=== PATIENT | male | born 1955 | race Caucasian/White ===

== ENCOUNTER 2020-07-10 13:50 | Observation (INO) | payer OTHER ==
[~2020-07-10] VITALS: Ht 177.8 cm; Wt 63.0 kg
[~2020-07-10 13:50] MED LIST: KEFLEX CAP 500500 MG PO
[2020-07-10 14:59] LABS: HEMOGLOBIN 15.6 gm/dl (14.0-17.5); RED BLOOD COUNT 5.05 M/UL (4.20-5.50); WHITE BLOOD COUNT 8.7 K/UL (4.5-11.0)
[2020-07-10 15:28] LABS: BUN/CREATININE RATIO 31 (0-10)
[2020-07-10] MEDS ORDERED: CLOPIDOGREL75 MG PO (17:06)
[2020-07-10] MEDS ORDERED: LISINOPRIL20 MG PO (17:06)
[2020-07-10] MEDS ORDERED: PRAVASTATIN SOD40 MG PO (17:06)
[2020-07-10] MEDS ORDERED: LANTUS SOL100 UNIT/1 SQ (17:07)
[2020-07-10] MEDS ORDERED: ASPIRIN325 MG PO (17:08)
[2020-07-10 20:57] LABS: BUN/CREATININE RATIO 30 (0-10)
[2020-07-11 03:41] LABS: HEMOGLOBIN 13.8 gm/dl (14.0-17.5); RED BLOOD COUNT 4.6 M/UL (4.20-5.50); WHITE BLOOD COUNT 8.4 K/UL (4.5-11.0)
[2020-07-11 03:55] LABS: BUN/CREATININE RATIO 33 (0-10)
[2020-07-11] MEDS ORDERED: LANTUS INS100 UTS/M1 SQ (09:08)
[2020-07-11] MEDS ORDERED: LISINOPRIL20 MG PO (09:08)
[2020-07-11] MEDS ORDERED: PRAVASTATIN SOD40 MG PO (09:08)
[2020-07-11] MEDS ORDERED: CLOPIDOGREL75 MG PO (09:08)
[2020-07-11] MEDS ORDERED: HUMALOG100 UNIT/1 SC (09:09)
== END 2020-07-11 14:58 | disposition home or self-care (01) ==
LOC: ER1 13:50 → CDU 16:37 → MED SURG 4 16:37
PROVIDERS: Emergency Medicine; Physician Assistant; ADMIT Internal Medicine
DX: E11.65 Type 2 diabetes mellitus with hyperglycemia (principal); E87.5 Hyperkalemia; I10 Essential (primary) hypertension; E78.5 Hyperlipidemia, unspecified; F17.210 Nicotine dependence, cigarettes, uncomplicated; Z20.822 Contact with and (suspected) exposure to COVID-19; Z98.1 Arthrodesis status; Z79.4 Long term (current) use of insulin; Z79.82 Long term (current) use of aspirin; Z79.2 Long term (current) use of antibiotics; Z86.73 Personal history of transient ischemic attack (TIA), and cerebral infarction without residual deficits; Z91.19 Patient's noncompliance with other medical treatment and regimen
CPT/HCPCS: 36415; 71045; 80048; 80053; 81001; 82009; 82800; 82962; 83036; 83605; 83735; 83930; 84100; 85025; 87040; 87070; 87077; 87086; 87186; 87205; 93005; 96374; 99285; G0378; J7030; U0002

== ENCOUNTER → 2020-07-29 | Outpatient (CLI) | payer OTHER ==
[~2020-07-29] MED LIST changes: +ASPIRIN325 MG PO; +CLOPIDOGREL75 MG PO; +HUMALOG100 UNIT/1 SC; +LANTUS INS100 UTS/M1 SQ; +LANTUS SOL100 UNIT/1 SQ; +LISINOPRIL20 MG PO; +PRAVASTATIN SOD40 MG PO
[2020-07-29 13:11] LABS: HEMOGLOBIN 12.8 gm/dl (14.0-17.5); RED BLOOD COUNT 4.36 M/UL (4.20-5.50); WHITE BLOOD COUNT 7.2 K/UL (4.5-11.0)
[2020-07-29 13:30] LABS: BUN/CREATININE RATIO 30 (0-10)
[2020-07-30 07:11] LABS: VITAMIN D, 25-HYDROXY 15.2 ng/mL (30.0-100.0)
[2020-07-30 08:14] LABS: THYROXINE (T4) 7.7 ug/dL (4.5-12.0)
[2020-07-30 10:14] LABS: CREATININE, URINE 38.7 mg/dL (Not Estab.)
== END ==
LOC: LAB 09:43
PROVIDERS: Nurse Practitioner
DX: E78.5 Hyperlipidemia, unspecified (principal); E05.90 Thyrotoxicosis, unspecified without thyrotoxic crisis or storm; E55.9 Vitamin D deficiency, unspecified
CPT/HCPCS: 36415; 80053; 80061; 82043; 82570; 84436; 84443; 84480; 85025

== ENCOUNTER 2020-09-02 10:02 | Emergency (ER) | payer OTHER ==
[2020-09-02 11:13] LABS: RED BLOOD COUNT 4.41 M/UL (4.20-5.50)
[2020-09-02 11:41] LABS: BUN/CREATININE RATIO 34 (0-10)
== END 2020-09-02 13:25 | disposition left against medical advice (07) ==
LOC: ER1 10:02
PROVIDERS: Physician Assistant Medical
DX: R10.84 Generalized abdominal pain (principal); E11.9 Type 2 diabetes mellitus without complications; E78.5 Hyperlipidemia, unspecified; I10 Essential (primary) hypertension; J44.9 Chronic obstructive pulmonary disease, unspecified; Z79.4 Long term (current) use of insulin
CPT/HCPCS: 80053; 81001; 85025; 99284; Q9967

== ENCOUNTER 2021-01-15 14:45 | Emergency (ER) | payer OTHER ==
[2021-01-15 15:41] LABS: HEMOGLOBIN 13.6 gm/dl (14.0-17.5); RED BLOOD COUNT 4.71 M/UL (4.20-5.50); WHITE BLOOD COUNT 6.3 K/UL (4.5-11.0)
[2021-01-15 16:11] LABS: BUN/CREATININE RATIO 28 (0-10)
== END 2021-01-15 17:10 | disposition home or self-care (01) ==
LOC: ER1 14:45
PROVIDERS: Preventive Medicine Occupational Medicine
DX: R00.2 Palpitations (principal); E11.9 Type 2 diabetes mellitus without complications; I25.10 Atherosclerotic heart disease of native coronary artery without angina pectoris; F17.210 Nicotine dependence, cigarettes, uncomplicated; Z86.73 Personal history of transient ischemic attack (TIA), and cerebral infarction without residual deficits
CPT/HCPCS: 71045; 80053; 80307; 81001; 82550; 82553; 83874; 84484; 85025; 87086; 93005; 99285

== ENCOUNTER 2021-04-15 17:03 | Inpatient (IN) | payer OTHER ==
[~2021-04-15] VITALS: Ht 180.3 cm; Wt 70.8 kg
[~2021-04-15 17:03] MED LIST changes: +PERCOCET 5/325 T1 EA PO
[2021-04-15] MEDS ORDERED: NOVOLOG100 UNIT/1 SC (19:09)
[2021-04-15 20:59] LABS: HEMOGLOBIN 10.5 gm/dl (14.0-17.5); RED BLOOD COUNT 3.57 M/UL (4.20-5.50)
[2021-04-15 21:10] LABS: BUN/CREATININE RATIO 41 (0-10)
[2021-04-16 07:47] LABS: HEMOGLOBIN 10.2 gm/dl (14.0-17.5); RED BLOOD COUNT 3.48 M/UL (4.20-5.50); WHITE BLOOD COUNT 13.5 K/UL (4.5-11.0)
[2021-04-16 08:41] LABS: BUN/CREATININE RATIO 49 (0-10)
[2021-04-16 17:13] LABS: RED BLOOD COUNT 2.76 M/UL (4.20-5.50); WHITE BLOOD COUNT 14.8 K/UL (4.5-11.0)
[2021-04-16 17:33] LABS: BUN/CREATININE RATIO 48 (0-10)
[2021-04-17 07:17] LABS: HEMOGLOBIN 8.9 gm/dl (14.0-17.5)
[2021-04-17 07:24] LABS: RED BLOOD COUNT 3.16 M/UL (4.20-5.50)
[2021-04-17 07:53] LABS: BUN/CREATININE RATIO 35 (0-10)
--- NOTE | 2021-04-17 15:25 | NUR ---
PT ROOM AIR SAT 94%
[2021-04-17] MEDS ORDERED: HYDROCODON-ACE1 EAC2 PO (15:39)
[2021-04-17] MEDS ORDERED: NICOTINE PATCH1 EAC2 TD (15:39)
--- NOTE | 2021-04-17 16:15 | NUR ---
PT ROOM AIR SAT 98%
== END 2021-04-17 19:10 | disposition home or self-care (01) | DRG 494 ==
LOC: M/S 18:52
PROVIDERS: Orthopaedic Surgery; ADMIT Internal Medicine
PROC: 0PSG04Z Reposition Left Humeral Shaft with Internal Fixation Device, Open Approach (ICD-10-PCS; principal; 2021-04-16 11:00)
DX: S42.202A Unspecified fracture of upper end of left humerus, initial encounter for closed fracture (principal); W18.30XA Fall on same level, unspecified, initial encounter; E78.5 Hyperlipidemia, unspecified; Z20.822 Contact with and (suspected) exposure to COVID-19; I10 Essential (primary) hypertension; D50.9 Iron deficiency anemia, unspecified; E11.9 Type 2 diabetes mellitus without complications; F41.9 Anxiety disorder, unspecified; J44.9 Chronic obstructive pulmonary disease, unspecified; E78.00 Pure hypercholesterolemia, unspecified; E86.0 Dehydration; I45.10 Unspecified right bundle-branch block; F17.210 Nicotine dependence, cigarettes, uncomplicated; Z86.73 Personal history of transient ischemic attack (TIA), and cerebral infarction without residual deficits; Z98.42 Cataract extraction status, left eye; Z98.41 Cataract extraction status, right eye; Z90.49 Acquired absence of other specified parts of digestive tract
CPT/HCPCS: 36415; 71045; 73020; 73030; 73200; 76000; 80048; 80053; 82270; 82607; 82728; 82746; 82803; 82962; 83036; 83540; 83550; 83605; 83735; 84100; 85025; 85027; 85610; 85652; 85730; 86140; 93005; 93971; 94664; 94760; C1713; C1762; J0171; J0690; J1100; J1265; J2001; J2250; J2270; J2370; J2704; J2710; J2795; J3010; J3370; J7030; J7120; U0002

== ENCOUNTER 2021-04-27 01:58 | Inpatient (IN) | payer OTHER ==
[~2021-04-27] VITALS: Ht 177.8 cm; Wt 72.6 kg
[~2021-04-27 01:58] MED LIST changes: +HYDROCODON-ACE1 EAC2 PO; +NICOTINE PATCH1 EAC2 TD; +NOVOLOG100 UNIT/1 SQ
[2021-04-27 03:16] LABS: HEMOGLOBIN 10.7 gm/dl (14.0-17.5); RED BLOOD COUNT 3.82 M/UL (4.20-5.50); WHITE BLOOD COUNT 14.7 K/UL (4.5-11.0)
[2021-04-27 03:28] LABS: BUN/CREATININE RATIO 35 (0-10)
== END 2021-04-27 15:35 | disposition left against medical advice (07) | DRG 872 ==
LOC: ER1 01:58 → CDU 04:52
PROVIDERS: Student in an Organized Health Care Education/Training Program; ADMIT Internal Medicine
PROC: B24BZZZ Ultrasonography of Heart with Aorta (ICD-10-PCS; principal; 2021-04-27)
DX: A41.9 Sepsis, unspecified organism (principal); L03.116 Cellulitis of left lower limb; J44.9 Chronic obstructive pulmonary disease, unspecified; Z20.822 Contact with and (suspected) exposure to COVID-19; E78.5 Hyperlipidemia, unspecified; E11.649 Type 2 diabetes mellitus with hypoglycemia without coma; F17.200 Nicotine dependence, unspecified, uncomplicated; I10 Essential (primary) hypertension; S42.302S Unspecified fracture of shaft of humerus, left arm, sequela; Z86.73 Personal history of transient ischemic attack (TIA), and cerebral infarction without residual deficits; Z90.49 Acquired absence of other specified parts of digestive tract; Z98.890 Other specified postprocedural states; Z79.4 Long term (current) use of insulin; Z79.899 Other long term (current) drug therapy
CPT/HCPCS: ECHO; 71045; 80048; 82550; 82553; 82962; 83605; 83880; 84484; 85025; 85652; 86140; 87040; 93005; 93306; 93970; 96372; 96374; 96375; 99285; J1650; J1940; J2270; J3370; J7070; U0002

== ENCOUNTER 2021-05-05 21:19 | Inpatient (IN) | payer OTHER ==
[~2021-05-05] VITALS: Ht 177.8 cm; Wt 76.2 kg
[2021-05-05 22:56] LABS: HEMOGLOBIN 9.4 gm/dl (14.0-17.5); RED BLOOD COUNT 3.4 M/UL (4.20-5.50); WHITE BLOOD COUNT 18.8 K/UL (4.5-11.0)
[2021-05-05 23:34] LABS: BUN/CREATININE RATIO 38 (0-10)
[2021-05-06] MEDS ORDERED: PRIMATENE MIS11.7 GM INH (09:40)
[2021-05-06 11:45] LABS: BUN/CREATININE RATIO 34 (0-10)
--- NOTE | 2021-05-07 03:33 | NUR ---
PTS LOWER LEG DRESSINGS SATURATED. WOUND CARE DONE AND WOUNDS CLEANSED WITH WOUND EMERGENCY DEPARTMENT DIRECTOR, WET TO DRY DRESSINGS APPLIED WITH RUBI WRAP ON TOP. PT TOLERATED WITH SOME PAIN.
[2021-05-07 06:17] LABS: HEMOGLOBIN 8.5 gm/dl (14.0-17.5); RED BLOOD COUNT 3.29 M/UL (4.20-5.50); WHITE BLOOD COUNT 12.8 K/UL (4.5-11.0)
[2021-05-07 06:55] LABS: BUN/CREATININE RATIO 29 (0-10)
[2021-05-08 03:05] LABS: HEMOGLOBIN 8.3 gm/dl (14.0-17.5); RED BLOOD COUNT 3.05 M/UL (4.20-5.50); WHITE BLOOD COUNT 11.5 K/UL (4.5-11.0)
[2021-05-08 03:15] LABS: BUN/CREATININE RATIO 27 (0-10)
[2021-05-09 03:51] LABS: BUN/CREATININE RATIO 26 (0-10)
[2021-05-10 02:55] LABS: HEMOGLOBIN 8.5 gm/dl (14.0-17.5); RED BLOOD COUNT 3.17 M/UL (4.20-5.50); WHITE BLOOD COUNT 8.7 K/UL (4.5-11.0)
[2021-05-10 03:11] LABS: BUN/CREATININE RATIO 25 (0-10)
--- NOTE | 2021-05-10 04:55 | NUR ---
WOUND CARE DONE TO BILATERAL LOWER LEGS. PT TOLERATED WELL. CLEANSED WITH SALINE AND WET TO DRY DRESSINGS APPLIED. COVERED WITH 4+4'S AND WRAPPED WITH RUBI.
[2021-05-12 03:10] LABS: HEMOGLOBIN 8.2 gm/dl (14.0-17.5); RED BLOOD COUNT 3.07 M/UL (4.20-5.50); WHITE BLOOD COUNT 8.7 K/UL (4.5-11.0)
[2021-05-12 03:22] LABS: BUN/CREATININE RATIO 28 (0-10)
[2021-05-12] MEDS ORDERED: ASPIRIN EC81 MG PO (12:47)
[2021-05-12] MEDS ORDERED: LEVOFLOXACIN750 MG PO (12:47)
[2021-05-12] MEDS ORDERED: HYDROCODON-ACE1 EAC2 PO (12:47)
[2021-05-12] MEDS ORDERED: ACETAMINOPHEN325 MG PO (12:47)
[2021-05-12] MEDS ORDERED: SANTYL OINT 3030 GM TOP (12:47)
[2021-05-12] MEDS ORDERED: THERAGRAN M TAB1 EA PO (12:47)
[2021-05-12] MEDS ORDERED: NICOTINE PATCH1 EAC1 TD (12:47)
[2021-05-12] MEDS ORDERED: FERROUS GLUCON324 M1 PO (12:47)
[2021-05-12] MEDS ORDERED: FLORASTOR250 MG PO (12:49)
[2021-05-12] MEDS ORDERED: IPRAT-ALBUT 0.5-3 ML INH (13:00)
== END 2021-05-12 21:55 | DRG 871 ==
LOC: ER1 21:19 → PROG CARE 05-06 03:44 → CDU 05-06 03:44 → PROG CARE 05-06 07:30
PROVIDERS: Emergency Medicine; Internal Medicine; Internal Medicine Infectious Disease; ADMIT Internal Medicine
DX: A41.89 Other specified sepsis (principal); R65.21 Severe sepsis with septic shock; E43 Unspecified severe protein-calorie malnutrition; E87.1 Hypo-osmolality and hyponatremia; L03.116 Cellulitis of left lower limb; L03.115 Cellulitis of right lower limb; Z20.822 Contact with and (suspected) exposure to COVID-19; J44.9 Chronic obstructive pulmonary disease, unspecified; E78.5 Hyperlipidemia, unspecified; I10 Essential (primary) hypertension; E87.6 Hypokalemia; B96.89 Other specified bacterial agents as the cause of diseases classified elsewhere; E11.65 Type 2 diabetes mellitus with hyperglycemia; D64.9 Anemia, unspecified; D50.9 Iron deficiency anemia, unspecified; Z96.612 Presence of left artificial shoulder joint; I35.0 Nonrheumatic aortic (valve) stenosis; R29.6 Repeated falls; L97.529 Non-pressure chronic ulcer of other part of left foot with unspecified severity; L97.519 Non-pressure chronic ulcer of other part of right foot with unspecified severity; R53.81 Other malaise; L89.151 Pressure ulcer of sacral region, stage 1; F17.210 Nicotine dependence, cigarettes, uncomplicated; Z86.73 Personal history of transient ischemic attack (TIA), and cerebral infarction without residual deficits; Z90.49 Acquired absence of other specified parts of digestive tract; Z98.890 Other specified postprocedural states; S42.202S Unspecified fracture of upper end of left humerus, sequela; Z79.899 Other long term (current) drug therapy; Z79.82 Long term (current) use of aspirin; Z79.4 Long term (current) use of insulin; Z68.24 Body mass index [BMI] 24.0-24.9, adult
CPT/HCPCS: 36415; 71045; 73030; 80048; 80053; 80202; 81001; 82550; 82962; 83605; 83735; 84100; 85025; 87040; 87070; 87077; 87086; 87186; 87205; 93005; 96374; 96375; 96376; 97110-GP-CQ; 97162; 97166; 97530; 97530-GP-CQ; 99285; A6212; J1650; J1756; J2543; J3370; J7030; J7070; P9047; U0002

== ENCOUNTER 2021-05-18 20:54 | Inpatient (IN) | payer OTHER ==
[~2021-05-18] VITALS: Ht 177.8 cm; Wt 82.1 kg
[~2021-05-18 20:54] MED LIST changes: +ACETAMINOPHEN325 MG PO; +ASPIRIN EC81 MG PO; +FERROUS GLUCON324 M1 PO; +FLORASTOR250 MG PO; +IPRAT-ALBUT 0.5-3 ML INH; +LEVOFLOXACIN750 MG PO; +NICOTINE PATCH1 EAC1 TD; +PRIMATENE MIS11.7 GM INH; +SANTYL OINT 3030 GM TOP; +THERAGRAN M TAB1 EA PO
[2021-05-19 22:16] LABS: HEMOGLOBIN 8.9 gm/dl (14.0-17.5); RED BLOOD COUNT 3.3 M/UL (4.20-5.50); WHITE BLOOD COUNT 9.1 K/UL (4.5-11.0)
[2021-05-19 22:41] LABS: BUN/CREATININE RATIO 24 (0-10)
[2021-05-20 02:53] LABS: HEMOGLOBIN 8.6 gm/dl (14.0-17.5); RED BLOOD COUNT 3.25 M/UL (4.20-5.50); WHITE BLOOD COUNT 8.6 K/UL (4.5-11.0)
[2021-05-20 03:16] LABS: BUN/CREATININE RATIO 27 (0-10)
[2021-05-20] MEDS ORDERED: SANTYL OINT 3030 GM TP (11:22)
[2021-05-20] MEDS ORDERED: NICOTINE PATCH1 EAC5 TOP (11:25)
[2021-05-20] MEDS ORDERED: CERTAVITE SR-A1 EACH PO (11:25)
[2021-05-20] MEDS ORDERED: IODOSORB TP (11:26)
[2021-05-21 02:44] LABS: HEMOGLOBIN 7.6 gm/dl (14.0-17.5); WHITE BLOOD COUNT 7.1 K/UL (4.5-11.0)
[2021-05-21 02:53] LABS: RED BLOOD COUNT 2.91 M/UL (4.20-5.50)
[2021-05-21 03:09] LABS: BUN/CREATININE RATIO 22 (0-10)
[2021-05-21 16:41] LABS: HEMOGLOBIN 8.7 gm/dl (14.0-17.5); WHITE BLOOD COUNT 6.7 K/UL (4.5-11.0)
[2021-05-21 16:45] LABS: RED BLOOD COUNT 3.21 M/UL (4.20-5.50)
[2021-05-21 17:16] LABS: BUN/CREATININE RATIO 29 (0-10)
[2021-05-22 05:19] LABS: HEMOGLOBIN 8.2 gm/dl (14.0-17.5); RED BLOOD COUNT 3.02 M/UL (4.20-5.50); WHITE BLOOD COUNT 9.1 K/UL (4.5-11.0)
[2021-05-22 05:42] LABS: BUN/CREATININE RATIO 34 (0-10)
[2021-05-23 05:42] LABS: HEMOGLOBIN 8.9 gm/dl (14.0-17.5); WHITE BLOOD COUNT 7.3 K/UL (4.5-11.0)
[2021-05-23 05:56] LABS: RED BLOOD COUNT 3.33 M/UL (4.20-5.50)
[2021-05-23 06:12] LABS: BUN/CREATININE RATIO 38 (0-10)
[2021-05-24 05:25] LABS: HEMOGLOBIN 7.5 gm/dl (14.0-17.5); RED BLOOD COUNT 2.83 M/UL (4.20-5.50); WHITE BLOOD COUNT 7.3 K/UL (4.5-11.0)
[2021-05-24 05:48] LABS: BUN/CREATININE RATIO 35 (0-10)
[2021-05-25 05:40] LABS: HEMOGLOBIN 7.7 gm/dl (14.0-17.5); RED BLOOD COUNT 2.86 M/UL (4.20-5.50); WHITE BLOOD COUNT 5.7 K/UL (4.5-11.0)
[2021-05-25 05:58] LABS: BUN/CREATININE RATIO 29 (0-10)
[2021-05-26 03:49] LABS: HEMOGLOBIN 7.3 gm/dl (14.0-17.5); RED BLOOD COUNT 2.76 M/UL (4.20-5.50); WHITE BLOOD COUNT 6.3 K/UL (4.5-11.0)
[2021-05-26 04:17] LABS: BUN/CREATININE RATIO 28 (0-10)
[2021-05-26] MEDS ORDERED: HUMALOG 10100 UNITS/ SC (11:01)
--- NOTE | 2021-05-26 16:02 | NUR ---
ORDER RECEIVED TO DC HEMOV[facility]. SURGICAL DRESSING REMOVED AND BRIGHT RED BLOODY GAUZE NOTED. 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 OK GIVEN TO REMOVE HEMOVAC. HEMOVAC REMOVED. 25CC OF BLOODY DRAINAGE NOTED IN HEMOVAC. DRESSING APPLIED TO SURGICAL SITE. PATIENT TOLERATED WELL. NO DISTRESS NOTED.
[2021-05-27] MEDS ORDERED: LEVOFLOXACIN750 MG PO (12:25)
== END 2021-05-27 18:41 | DRG 493 ==
LOC: PROG CARE 20:54 → M/S 05-19 20:13 → CCU 05-19 20:13 → PROG CARE 05-19 20:13 → CCU 05-21 15:14 → M/S 05-25 10:36
PROVIDERS: Internal Medicine Infectious Disease; Orthopaedic Surgery; ADMIT Internal Medicine
PROC: 0PPD04Z Removal of Internal Fixation Device from Left Humeral Head, Open Approach (ICD-10-PCS; 2021-05-21)
PROC: 0RHK08Z Insertion of Spacer into Left Shoulder Joint, Open Approach (ICD-10-PCS; 2021-05-21)
PROC: 30233N1 Transfusion of Nonautologous Red Blood Cells into Peripheral Vein, Percutaneous Approach (ICD-10-PCS; 2021-05-21)
PROC: 0PBD0ZZ Excision of Left Humeral Head, Open Approach (ICD-10-PCS; principal; 2021-05-21 07:30)
DX: S42.202A Unspecified fracture of upper end of left humerus, initial encounter for closed fracture (principal); I69.352 Hemiplegia and hemiparesis following cerebral infarction affecting left dominant side; I47.1 Supraventricular tachycardia; J90 Pleural effusion, not elsewhere classified; L97.519 Non-pressure chronic ulcer of other part of right foot with unspecified severity; L97.529 Non-pressure chronic ulcer of other part of left foot with unspecified severity; B96.89 Other specified bacterial agents as the cause of diseases classified elsewhere; Z20.822 Contact with and (suspected) exposure to COVID-19; E11.65 Type 2 diabetes mellitus with hyperglycemia; W01.0XXA Fall on same level from slipping, tripping and stumbling without subsequent striking against object, initial encounter; E11.649 Type 2 diabetes mellitus with hypoglycemia without coma; D50.9 Iron deficiency anemia, unspecified; E78.5 Hyperlipidemia, unspecified; J44.9 Chronic obstructive pulmonary disease, unspecified; I10 Essential (primary) hypertension; L89.152 Pressure ulcer of sacral region, stage 2; I35.0 Nonrheumatic aortic (valve) stenosis; Z87.891 Personal history of nicotine dependence; Z98.890 Other specified postprocedural states; Z82.49 Family history of ischemic heart disease and other diseases of the circulatory system; Z90.49 Acquired absence of other specified parts of digestive tract; Z82.3 Family history of stroke; Z79.82 Long term (current) use of aspirin; Z79.899 Other long term (current) drug therapy; Z79.4 Long term (current) use of insulin
CPT/HCPCS: 36415; 36430; 71045; 73020; 80048; 80053; 81001; 82533; 82962; 83036; 83735; 83880; 84100; 84439; 84443; 85014; 85018; 85025; 85610; 85730; 86850; 86900; 86901; 86920; 87040; 87070; 87081; 87086; 87205; 93005; 94640; 94664; 94760; 97162; 97167; 97530; A6243; C1776; C9113; J0690; J1100; J1940; J2001; J2270; J2370; J2795; J3010; J3260; J3370; J7030; J7050; J7120; P9016